=== PATIENT | female | born 1980 | race American Indian/Alaskan Native ===

== ENCOUNTER 2019-04-10 17:06 | Emergency (ER) | payer SELFPAY ==
[~2019-04-10] VITALS: Ht 157.5 cm; Wt 68.0 kg
[2019-04-10] MEDS ORDERED: MORPHINE SULFATE INJ 4 MG/ML INJ 1ML IV STA (18:10)
[2019-04-10] MEDS ORDERED: DEXAMETHASONE SOD PHOS 10 MG/1 ML VIAL IV ONE (18:15)
[2019-04-10] MEDS ORDERED: DIAZEPAM 2 MG TAB PO ONE ×2 (18:15→20:30)
--- NOTE | 2019-04-10 19:39 | Diagnostic Imaging Report ---
History: Hip and back pain, status post fall. Comparison studies: None Technique: Axial images were obtained through the lumbar spine from T12-S1. Coronal and sagittal images reconstructed from the axial data. Dose modulation, iterative reconstruction, and/or weight based adjustment of the mA/kV was utilized to reduce the radiation dose to as low as reasonably achievable. Intravenous contrast: None Findings: The usual 5 non-rib bearing lumbar vertebral bodies are present. Alignment: Normal lordosis. No scoliosis. Soft tissues: No abnormalities. Paraspinal muscles: Unremarkable. Sacroiliac joints: Minimal vacuum phenomena in bilateral sacroiliac joints. Vertebrae: Age indeterminate superior endplate compression deformity and Schmorl's node at L1 and L2 with approximately 20% loss of vertebral body height. No retropulsion into the spinal canal. Degenerative changes: L1-L2: No abnormalities. L2-L3: No abnormalities. L3-L4: No abnormalities. L4-L5: No abnormalities. L5-S1: Mild degenerative disc disease. Disc bulge without canal stenosis. No foraminal stenosis. IMPRESSION: 1. Age indeterminate superior endplate compression deformity and Schmorl's node at L1 and L2. 2. Minimal degenerative changes at level L5-S1 without canal or foraminal stenosis. 3. Ligament, spinal cord and or vascular abnormalities cannot be excluded on the basis of this examination. Signed by: Dr. Pilar Espinosa M.D. on 04/10/2019 7:35 PM
[2019-04-10] MEDS ORDERED: ULTRAM 50MG50 MG PO (20:09)
[2019-04-10] MEDS ORDERED: VALIUM2 MG PO (20:09)
[2019-04-10] MEDS ORDERED: HYDROCODONE/APAP 7.5MG-325MG 1 EA TAB PO ONE (20:30)
== END 2019-04-10 20:00 | disposition home or self-care (01) ==
LOC: ER 17:06
DX: M54.5 Low back pain (principal); W01.0XXA Fall on same level from slipping, tripping and stumbling without subsequent striking against object, initial encounter; Y92.89 Other specified places as the place of occurrence of the external cause
CPT/HCPCS: 72131; 81025